=== PATIENT | male | born 1960 | race American Indian/Alaskan Native ===

== ENCOUNTER 2019-08-14 02:22 | Emergency (ER) | payer OTHER ==
[2019-08-14] MEDS ORDERED: ONDANSETRON 4 MG/2 ML INJ IV ONE (03:18)
[2019-08-14] MEDS ORDERED: SODIUM CHLORIDE 0.9% 1000 ML 1,000 ML IV ONE (03:18)
--- NOTE | 2019-08-14 03:50 | Emergency Department Report ---
ED General Adult HPI - General Chief complaint: Headache Stated complaint: HEAD PAIN Source: patient Mode of arrival: Ambulatory Limitations: No Limitations - History of Present Illness Initial comments: Patient is a 58-year-old -I[place] male with history of hypertension who presented to the ED with complaint of acute onset lightheadedness and nausea and vomiting for the last 1 hour. Patient states that he noticed that his blood pressure was also elevated and states that he has not taken his blood pressure medication in over 24 hours. Patient states that he has had one episode of nausea and vomiting and persistent lightheadedness. Patient also admits that he had been drinking alcohol prior to the onset of the symptoms. Patient denies dizziness, syncope, seizures, chest pain, shortness of breath, fever, chills, cough, abdominal pain, diarrhea, dysuria, urinary frequency and urgency, change in vision or palpitations and diaphoresis. MD Complaint: Lightheadedness; Nausea and vomiting -: Sudden, hour(s) (2) Location: head, chest Radiation: non-radiation Severity scale (0 -10): 3 Quality: aching, dull Consistency: intermittent Improves with: none Worsens with: none Associated Symptoms: denies other symptoms, nausea/vomiting. denies: confusion, chest pain, cough, diaphoresis, fever/chills, headaches, loss of appetite, malaise, rash, seizure, shortness of breath, syncope, weakness, other Treatments Prior to Arrival: none - Related Data Previous Rx's Medication Instructions Recorded Last Taken Type Aspirin [Aspirin BABY CHEW TAB] 81 mg PO ONCE #100 tab.chew 01/30/14 Unknown Rx Clotrimazole/Betamethasone Dip 15 gm TP BID #1 cream..g. 01/30/14 Unknown Rx [Lotrisone Cream] lisinopriL [Zestril TAB] 20 mg PO QDAY #30 tablet 01/30/14 Unknown Rx Ondansetron [Zofran Odt] 4 mg PO Q6HR PRN #15 tab.rapdis 08/14/19 Unknown Rx Allergies Allergy/AdvReac Type Severity Reaction Status Date / Time prochlorperazine edisylate Allergy Swelling Verified 01/30/14 15:48 [From Compazine] prochlorperazine maleate Allergy Swelling Verified 01/30/14 15:48 [From Compazine] ED Review of Systems ROS: Stated complaint: HEAD PAIN Other details as noted in HPI Constitutional: denies: chills, fever Eyes: denies: eye pain, eye discharge, vision change ENT: denies: ear pain, throat pain Respiratory: denies: cough, shortness of breath, wheezing Cardiovascular: denies: chest pain, palpitations Endocrine: no symptoms reported Gastrointestinal: nausea, vomiting. denies: abdominal pain, diarrhea Genitourinary: denies: urgency, dysuria Musculoskeletal: denies: back pain, joint swelling, arthralgia Skin: denies: rash, lesions Neurological: other (lightheadedness). denies: headache, weakness, paresthesias Psychiatric: denies: anxiety, depression Hematological/Lymphatic: denies: easy bleeding, easy bruising ED Past Medical Hx - Past Medical History Previous Medical History?: Yes Hx Hypertension: Yes - Surgical History Past Surgical History?: Yes Additional Surgical History: Hernia repair - Social History Smoking Status: Current Every Day Smoker Substance Use Type: Alcohol - Medications Home Medications: Home Medications Medication Instructions Recorded Confirmed Last Taken Type Aspirin [Aspirin BABY CHEW TAB] 81 mg PO ONCE #100 tab.chew 01/30/14 Unknown Rx Clotrimazole/Betamethasone Dip 15 gm TP BID #1 cream..g. 01/30/14 Unknown Rx [Lotrisone Cream] lisinopriL [Zestril TAB] 20 mg PO QDAY #30 tablet 01/30/14 Unknown Rx Ondansetron [Zofran Odt] 4 mg PO Q6HR PRN #15 tab.rapdis 08/14/19 Unknown Rx ED Physical Exam - General Limitations: No Limitations General appearance: alert, in no apparent distress - Head Head exam: Present: atraumatic, normocephalic, normal inspection - Eye Eye exam: Present: normal appearance, PERRL, EOMI Pupils: Present: normal accommodation - ENT ENT exam: Present: normal exam, normal orophraynx, mucous membranes moist, TM's normal bilaterally, normal external ear exam - Neck Neck exam: Present: normal inspection, full ROM - Respiratory Respiratory exam: Present: normal lung sounds bilaterally. Absent: respiratory distress, wheezes, rales, rhonchi, chest wall tenderness, accessory muscle use, decreased breath sounds, prolonged expiratory - Cardiovascular Cardiovascular Exam: Present: regular rate, normal rhythm, normal heart sounds. Absent: systolic murmur, diastolic murmur, rubs, gallop - GI/Abdominal GI/Abdominal exam: Present: soft, normal bowel sounds. Absent: tenderness, gua rding, hyperactive bowel sounds, hypoactive bowel sounds - Extremities Exam Extremities exam: Present: normal inspection, full ROM, normal capillary refill - Back Exam Back exam: Present: normal inspection, full ROM. Absent: tenderness, CVA tenderness (R), CVA tenderness (L), muscle spasm, paraspinal tenderness, vertebr al tenderness, rash noted - Neurological Exam Neurological exam: Present: alert, oriented X3, CN II-XII intact, normal gait, reflexes normal - Psychiatric Psychiatric exam: Present: normal affect, normal mood - Skin Skin exam: Present: warm, dry, intact, normal color. Absent: rash ED Course Vital Signs 08/14/19 08/14/19 02:26 05:05 Temperature 98.5 F 97.7 F Pulse Rate 92 H 74 Respiratory 20 17 Rate Blood Pressure 168/104 Blood Pressure 139/93 [Left] O2 Sat by Pulse 97 97 Oximetry ED Medical Decision Making - Lab Data Result diagrams: 08/14/19 03:36 08/14/19 03:36 - Medical Decision Making This is a 58-year-old -I[place] male with a history of hypertension and alcohol abuse who presented to the ED with complaint of lightheadedness after having 1 episode of nausea and vomiting, and having been drinking alcohol prior to the onset of the symptoms. In the ED, patient is alert and oriented x3 and is not in any distress. Patient is hypertensive in triage. Lab test results were reviewed and are all nonactionable. Patient received normal saline 1 L IV bolus and was treated for nausea and vomiting. On reevaluation, patient nausea and vomiting resolved as well as lightheadedness. Patient's vital signs stabilized. Patient was discharged home on antiemetics and advised to consider quitting alcohol consumption and to follow-up with her primary care physician in 3 to 5 days for reevaluation or return to the ED immediately if symptoms get worse. - Differential Diagnosis Dehydration; Hypertensive urgency; Alcohol intoxication Critical care attestation.: If time is entered above; I have spent that time in minutes in the direct care of this critically ill patient, excluding procedure time. ED Disposition Clinical Impression: Light-headedness, Nausea and vomiting in adult Disposition: DC-01 TO HOME OR SELFCARE Is pt being admited?: No Does the pt Need Aspirin: No Condition: Stable Instructions: Lightheadedness (ED), Acute Nausea and Vomiting (ED) Additional Instructions: Take medication with food, drink plenty of fluids and follow-up with your primary care physician in 3 to 5 days for reevaluation. Return to the ED immediately if symptoms get worse. Prescriptions: Ondansetron [Zofran Odt] 4 mg PO Q6HR PRN #15 tab.rapdis PRN Reason: Nausea Referrals: [facility] [Primary Care Provider] - 3-5 Days Time of Disposition: 03:49 Print Language: K[place]IL[place]
[2019-08-14 04:24] LABS: Basophils # (Auto) 0.1 K/mm3 (0.0-0.1); Basophils % (Auto) 1.1 % (0.0-1.8); Eosinophils # (Auto) 0.1 K/mm3 (0.0-0.4); Eosinophils % (Auto) 1.6 % (0.0-4.3); Hematocrit 45.9 % (35.5-45.6); Hemoglobin 15.7 gm/dl (11.8-15.2); Lymphocytes # (Auto) 2.1 K/mm3 (1.2-5.4); Lymphocytes % (Auto) 29.3 % (13.4-35.0); Mean Corpuscular HGB Conc 34 % (32-34); Mean Corpuscular Volume 88 fl (84-94); Monocytes # (Auto) 0.6 K/mm3 (0.0-0.8); Monocytes % (Auto) 7.8 % (0.0-7.3); Platelet Count 225 K/mm3 (140-440); Red Blood Count 5.21 M/mm3 (3.65-5.03); Red Cell Distribution Width 14.8 % (13.2-15.2)
[2019-08-14 04:39] LABS: Alanine Aminotransferase 12 units/L (7-56); Albumin 4.2 g/dL (3.9-5); BUN/Creatinine Ratio 7; Blood Urea Nitrogen 7 mg/dL (9-20); Calcium 8.9 mg/dL (8.4-10.2); Hemolysis Index 9
[2019-08-14 05:07] VITALS: BP 139/93
== END 2019-08-14 05:40 | disposition home or self-care (01) ==
LOC: ED 02:22
DX: R42 Dizziness and giddiness (principal); R11.2 Nausea with vomiting, unspecified; I10 Essential (primary) hypertension; F17.200 Nicotine dependence, unspecified, uncomplicated
CPT/HCPCS: 36415; 80053; 85025; 96361; 96374; 99283; J2405; J7030

== ENCOUNTER 2020-10-08 06:19 | Emergency (ER) | payer OTHER ==
[2020-10-08 06:52] VITALS: BP 145/88
--- NOTE | 2020-10-08 07:47 | Emergency Department Report ---
- General Chief Complaint: Upper Respiratory Infection Stated Complaint: BREATHING PROBLEM Time Seen by Provider: 10/08/20 07:42 Source: patient Mode of arrival: Ambulatory Limitations: No Limitations - History of Present Illness Initial Comments: 59-year-old male presents to the emergency room complaining of sore throat, swollen glands, nasal congestion, difficulty swallowing productive cough, clear nasal discharge, symptoms started 2 days ago. He denies fever and chills. He denies chest pain. He denies shortness of breath but states that he feels like he has difficulty breathing because of his swollen throat. Patient states that he was diagnosed with coronavirus about a month ago after receiving coronavirus vaccine x2. His past medical history consists of hypertension he smokes half a pack of cigarettes a day drinks alcohol at least twice a week. MD Complaint: sore throat -: days(s) Severity: moderate (2 days) Severity scale (0 -10): 10 Improves With: nothing Worsens With: other (When he attempts to swallow) Associated Symptoms: rhinorrhea, nasal congestion, sore throat, cough, diarrhea. denies: fever, chills, stiff neck, chest pain, shortness of breath, abdominal pain, confusion, right sweats, weight loss, epistaxis, hoarseness, ear pain Treatments Prior to Arrival: none - Related Data Previous Rx's Medication Instructions Recorded Last Taken Type Aspirin [Aspirin BABY CHEW TAB] 81 mg PO ONCE #100 tab.chew 01/30/14 Unknown Rx Clotrimazole/Betamethasone Dip 15 gm TP BID #1 cream..g. 01/30/14 Unknown Rx [Lotrisone Cream] lisinopriL [Zestril TAB] 20 mg PO QDAY #30 tablet 01/30/14 Unknown Rx Ondansetron [Zofran Odt] 4 mg PO Q6HR PRN #15 tab.rapdis 08/14/19 Unknown Rx Prednisone [predniSONE 10 mg 10 mg PO .TAPER #1 pack 10/08/20 Unknown Rx (6-Day Pack, 21 Tabs)] levoFLOXacin [Levaquin] 750 mg PO QDAY #5 tablet 10/08/20 Unknown Rx Allergies Allergy/AdvReac Type Severity Reaction Status Date / Time prochlorperazine edisylate Allergy Swelling Verified 01/30/14 15:48 [From Compazine] prochlorperazine maleate Allergy Swelling Verified 01/30/14 15:48 [From Compazine] ED Review of Systems ROS: Stated complaint: BREATHING PROBLEM Other details as noted in HPI Comment: All other systems reviewed and negative Constitutional: denies: chills, fever ENT: throat pain, congestion. denies: ear pain, dental pain, hearing loss Respiratory: cough. denies: orthopnea, shortness of breath, wheezing Cardiovascular: denies: chest pain, palpitations, edema Endocrine: denies: no symptoms reported, excessive sweating, intolerance to cold Gastrointestinal: diarrhea. denies: abdominal pain, nausea Musculoskeletal: denies: back pain Skin: denies: rash, change in color Neurological: denies: headache Psychiatric: denies: anxiety ED Past Medical Hx - Past Medical History Previous Medical History?: Yes Hx Hypertension: Yes - Surgical History Past Surgical History?: Yes Additional Surgical History: Hernia repair - Social History Smoking Status: Current Every Day Smoker Substance Use Type: Alcohol - Medications Home Medications: Home Medications Medication Instructions Recorded Confirmed Last Taken Type Aspirin [Aspirin BABY CHEW TAB] 81 mg PO ONCE #100 tab.chew 01/30/14 Unknown Rx Clotrimazole/Betamethasone Dip 15 gm TP BID #1 cream..g. 01/30/14 Unknown Rx [Lotrisone Cream] lisinopriL [Zestril TAB] 20 mg PO QDAY #30 tablet 01/30/14 Unknown Rx Ondansetron [Zofran Odt] 4 mg PO Q6HR PRN #15 tab.rapdis 08/14/19 Unknown Rx Prednisone [predniSONE 10 mg 10 mg PO .TAPER #1 pack 10/08/20 Unknown Rx (6-Day Pack, 21 Tabs)] levoFLOXacin [Levaquin] 750 mg PO QDAY #5 tablet 10/08/20 Unknown Rx ED Physical Exam - General Limitations: No Limitations General appearance: alert, in no apparent distress - Head Head exam: Present: atraumatic, normal inspection - Eye Eye exam: Present: normal appearance - ENT ENT exam: Present: mucous membranes moist, TM's normal bilaterally, other (Postpharyngeal edema, tonsils enlarged and touching) - Neck Neck exam: Present: full ROM, lymphadenopathy - Respiratory Respiratory exam: Present: rhonchi (At the bases, clear breath sounds in upper lung ruby) - Cardiovascular Cardiovascular Exam: Present: regular rate, normal heart sounds - GI/Abdominal GI/Abdominal exam: Present: soft - Extremities Exam Extremities exam: Present: normal inspection - Back Exam Back exam: Present: normal inspection - Neurological Exam Neurological exam: Present: alert, oriented X3 - Psychiatric Psychiatric exam: Present: normal affect - Skin Skin exam: Present: warm, dry, intact, normal color ED Course Vital Signs 10/08/20 06:40 Temperature 98.6 F Pulse Rate 80 Respiratory 18 Rate Blood Pressure 145/88 O2 Sat by Pulse 98 Oximetry ED Medical Decision Making - Lab Data Result diagrams: 10/08/20 08:04 10/08/20 08:04 - Radiology Data Radiology results: report reviewed FINDINGS: There is diffuse inflammatory change with enlargement edema throughout the pharynx and peritonsillar soft tissues throughout. Mild induration and soft tissue thickening seen diffusely. No well-defined fluid collection or abscess is identified. No drainable collection is seen. The prior glands and submandibular glands appear normal. Inflammatory change surrounding the valleculae and piriform sinuses with some narrowing of the airway from inflammation. Inflammatory changes swelling surrounding the vocal folds. Lung apices appear normal. No acute bone findings. IMPRESSION: 1. No peritonsillar abscess or drainable fluid collection is seen. 2. Marked inflammatory change surrounding the airway including inflammatory change and thickening of the pharynx, peritonsillar soft tissues, focal folds. There is narrowing of the airways with inflammatory change and induration however no drainable fluid collection or abscess is seen. 3. Diffuse sinus disease involving the ethmoid sinuses. - Medical Decision Making Patient reevaluated states he is doing much better swelling in the back of his throat is improving. CT soft tissue neck shows inflammation and but no peritonsillar abscess. Patient will be treated for sinusitis Levaquin 750 daily x5 days. Along with prednisone pack to decrease the inflammation. He is in no distress respirations easy and unlabored oxygen saturation 98% on room air patient able to swallow without difficulty - Differential Diagnosis Sinusitis peritonsillar abscess pharyngitis Critical Care Time: No Critical care attestation.: If time is entered above; I have spent that time in minutes in the direct care of this critically ill patient, excluding procedure time. ED Disposition Clinical Impression: Sinusitis Qualifiers: Sinusitis location: pansinusitis Chronicity: acute Recurrence: not specified as recurrent Qualified Code(s): J01.40 - Acute pansinusitis, unspecified Pharyngitis Qualifiers: Pharyngitis/tonsillitis etiology: unspecified etiology Qualified Code(s): J02.9 - Acute pharyngitis, unspecified Disposition: TO HOME OR SELFCARE Is pt being admited?: No Does the pt Need Aspirin: No Condition: Stable Instructions: Sinusitis, Adult, Pharyngitis, Sdps-rs-Rlob Additional Instructions: Take all the medications as prescribed. Use warm salt water gargles. If you develop difficulty breathing or inability to swallow please return to the emergency room immediately Prescriptions: levoFLOXacin [Levaquin] 750 mg PO QDAY #5 tablet Prednisone [predniSONE 10 mg (6-Day Pack, 21 Tabs)] 10 mg PO .TAPER #1 pack Referrals: PRIMARY CAREMD [Primary Care Provider] - 3-5 Days EDGARDO POLO MD [Staff Physician] - 3-5 Days Time of Disposition: 11:56
[2020-10-08] MEDS ORDERED: dexAMETHasone 4 MG/ML VIAL IV ONE (07:48)
[2020-10-08 08:27] LABS: Basophils # (Auto) 0.1 K/mm3 (0.0-0.1); Basophils % (Auto) 0.7 % (0.0-1.8); Eosinophils # (Auto) 0.1 K/mm3 (0.0-0.4); Eosinophils % (Auto) 0.8 % (0.0-4.3); Hematocrit 46.5 % (35.5-45.6); Hemoglobin 16.3 gm/dl (11.8-15.2); Lymphocytes # (Auto) 2.1 K/mm3 (1.2-5.4); Lymphocytes % (Auto) 20.5 % (13.4-35.0); Mean Corpuscular HGB Conc 35 % (32-34); Mean Corpuscular Volume 88 fl (84-94); Monocytes # (Auto) 0.7 K/mm3 (0.0-0.8); Monocytes % (Auto) 6.8 % (0.0-7.3); Platelet Count 215 K/mm3 (140-440); Red Blood Count 5.31 M/mm3 (3.65-5.03); Red Cell Distribution Width 15.5 % (13.2-15.2)
[2020-10-08 08:41] LABS: BUN/Creatinine Ratio 8; Blood Urea Nitrogen 10 mg/dL (9-20); Hemolysis Index 54
--- NOTE | 2020-10-08 10:20 | Cat Scan Report ---
CT soft tissue neck with contrast INDICATION: Peritonsillar abscess TECHNIQUE: Axial, coronal and sagittal images All CT scans at this location are performed using CT dose reduction for ALARA by means of automated e xposure control. FINDINGS: There is diffuse inflammatory change with enlargement edema throughout the pharynx and steph tonsillar soft tissues throughout. Mild induration and soft tissue thickening seen diffusely. No well -defined fluid collection or abscess is identified. No drainable collection is seen. The prior glands and submandibular glands appear normal. Inflammatory change surrounding the valleculae and piriform sinuses with some narrowing of the airway from inflammation. Inflammatory changes swelling surroundin g the vocal folds. Lung apices appear normal. No acute bone findings. IMPRESSION: 1. No peritonsillar abscess or drainable fluid collection is seen. 2. Marked inflammatory change surrounding the airway including inflammatory change and thickening of the pharynx, peritonsillar soft tissues, focal folds. There is narrowing of the airways with inflamma tory change and induration however no drainable fluid collection or abscess is seen. 3. Diffuse sinus disease involving the ethmoid sinuses. Signer Name: Oliver Saleem MD Signed: 10/08/2020 10:16 AM Workstation Name: [id number]
== END 2020-10-08 12:00 | disposition home or self-care (01) ==
LOC: ED 06:19
DX: J02.9 Acute pharyngitis, unspecified (principal); J32.9 Chronic sinusitis, unspecified; F17.200 Nicotine dependence, unspecified, uncomplicated; I10 Essential (primary) hypertension; Z79.899 Other long term (current) drug therapy; Z88.8 Allergy status to other drugs, medicaments and biological substances; Z98.890 Other specified postprocedural states
CPT/HCPCS: 36415; 70491; 80048; 85025; 87116; 87430; 99284; Q9967